=== PATIENT | male | born 1980 | race Caucasian/White ===

== ENCOUNTER 2019-04-14 21:40 | Emergency (ER) | payer OTHER ==
[~2019-04-14] VITALS: Ht 182.9 cm; Wt 110.2 kg
[2019-04-14 21:44] VITALS: BP 133/89; Ht 182.9 cm; Wt 110.2 kg
== END 2019-04-14 23:04 | disposition home or self-care (01) ==
LOC: ED 21:40
DX: S81.811A Laceration without foreign body, right lower leg, initial encounter (principal); W45.8XXA Other foreign body or object entering through skin, initial encounter; Y93.01 Activity, walking, marching and hiking; Y92.89 Other specified places as the place of occurrence of the external cause; Y99.8 Other external cause status
CPT/HCPCS: 90715; J2001